=== PATIENT | male | born 1990 | race Caucasian/White ===

== ENCOUNTER 2020-05-07 00:59 | Outpatient (CLI) | payer SELFPAY | END 2020-05-07 01:00 | disposition EMS.NT | LOC: EMS 00:59 | PROVIDERS: ATTEND Surgery | DX: Z04.1 Encounter for examination and observation following transport accident (principal) ==

== ENCOUNTER 2022-02-16 14:41 | Outpatient (CLI) | payer OTHER | END 2022-02-16 14:42 | disposition short-term general hospital (02) | LOC: EMS 14:41 | DX: S49.91XA Unspecified injury of right shoulder and upper arm, initial encounter (principal); S09.90XA Unspecified injury of head, initial encounter; V13.4XXA Pedal cycle driver injured in collision with car, pick-up truck or van in traffic accident, initial encounter; Y93.55 Activity, bike riding; Y92.414 Local residential or business street as the place of occurrence of the external cause | CPT/HCPCS: A0425; A0427 ==